=== PATIENT | female | born 1945 | race Caucasian/White ===

== ENCOUNTER → 2017-02-09 | Outpatient (CLI) | payer MEDICARE, BC ==
[~2017-02-09] MED LIST: ASPIRIN EC81 MG PO; FLONASE 50 MCG/16 GM NOSE; LIPITOR80 MG PO; NAPROSYN500 MG PO; NORCO 5-325 TA1 EACH PO
== END | disposition disaster alternative care site (69) ==
LOC: GBCOE 02-04 07:30
DX: Z12.31 Encounter for screening mammogram for malignant neoplasm of breast (principal)
CPT/HCPCS: G0202

== ENCOUNTER → 2017-02-23 | Outpatient (CLI) | payer MEDICARE, BC | END | disposition disaster alternative care site (69) | LOC: GRAD 02-19 09:00 | DX: I65.29 Occlusion and stenosis of unspecified carotid artery (principal); I65.22 Occlusion and stenosis of left carotid artery | CPT/HCPCS: Q9967 ==

== ENCOUNTER 2017-03-16 10:00 | Inpatient (IN) | payer MEDICARE, BC ==
[~2017-03-16] VITALS: Ht 160 cm; Wt 79.1 kg
--- NOTE | ~2017-03-16 | OR ---
PATIENT'S NAME: NATALYA BARBOZA [facility] AGE: 71 Y [address] ROOM: [address] [address] LOCATION: GPCU ADMIT DATE: 03/25/2017 OR/Procedure Report DISCHARGE DATE: FAMILY PHYSICIAN: Naomi Du MD ATTENDING PHYSICIAN: JOSE ANTONIO MAYS SURGEON: Jose Antonio Mays MD AGRONOMY ADVISOR: DATE OF PROCEDURE: 03/25/2017 PREOPERATIVE DIAGNOSIS: High-grade left internal carotid artery stenosis. POSTOPERATIVE DIAGNOSIS: High-grade left internal carotid artery stenosis. PROCEDURE: Left carotid endarterectomy with bovine pericardial patch. CASHIER CHECKER: FELICITA Camarena. ANESTHESIA: General. ESTIMATED BLOOD LOSS: 150 mL. FINDINGS: Heavily calcified near occlusive lesion. Neurologically intact at the end of the case. DESCRIPTION OF PROCEDURE: The patient was brought to the operating room, placed supine on the operating room table, prepped and draped in a sterile manner. Preoperative time-out was performed. The patient received preoperative antibiotics. We made a standard incision along the anterior border of the left sternocleidomastoid muscle. We transected the platysma, dissected around the soft areolar tissue along the anterior border of the muscle, identified the internal jugular and identified the facial vein, which was ligated and transected. We then dissected out the common, the external and internal as well as the superior thyroid. We gave 5000 units of heparin. We clamped on all of the 3 major vessels. Placed a clip on the superior thyroid, which was removed at the end of the case. We performed a back pressure, which showed adequate pressure, not requiring a shunt. We then made an arteriotomy using 11 blade followed with Hussein scissors. We removed the plaque in its entirety. We then did a standard bovine pericardial patch using 2 running 6-0 Kershaw sutures. We removed the clamps. There was excellent flow in all 3 vessels, which was confirmed using Doppler. The patient received a total of 5000 units of heparin, which was reversed with protamine. Thrombin was used locally in the wound. Deep layers were closed with 2-0 and 3-0 Vicryl. Skin was closed with running 4-0 Monocryl. Of note, when we were entering the carotid sheath, we were greeted by several large lymph nodes, we resected 3 and sent them for permanent pathology. They did not appear PATIENT'S NAME: NATALYA BARBOZA [facility] AGE: 71 Y [address] ROOM: [place] [address] [facility] ADMIT DATE: 03/25/2017 OR/Procedure Report DISCHARGE DATE: FAMILY PHYSICIAN: Naomi Du MD ATTENDING PHYSICIAN: JOSE ANTONIO MAYS malignant, but they were extremely large in size. The patient tolerated the procedure well, awoken in the operating room neurologically intact, transferred to the recovery room. JOSE ANTONIO MAYS MD FKM/modl /[id number] d: 03/25/171946 t: 03/27/17 1120, OPERATIVE SUMMARY
[2017-03-16] MEDS ORDERED: ASPIRIN EC81 MG PO (10:26)
[2017-03-16] MEDS ORDERED: NAPROSYN500 MG PO (10:27)
[2017-03-25] MEDS ORDERED: FLONASE 50 MCG/16 GM NOSE (11:25)
[2017-03-25 11:33] LABS: BASOPHIL # 0.1 K/uL (0.0-0.2); BASOPHIL % 0.6 %; EOSINOPHIL # 0.2 K/uL (0.0-0.5); EOSINOPHIL % 2.6 %; HEMATOCRIT 37.8 % (33.0-46.0); HEMOGLOBIN 12.5 g/dL (10.0-15.0); IMMATURE GRANULOCYTE % 0.3 %; LYMPHOCYTE # 2.6 K/uL (0.8-4.0); LYMPHOCYTE % 33.1 %; MCH 29.1 pg (27.0-34.0); MCHC 33.1 gm/dL (32.0-36.5); MCV 87.9 fl (83.0-98.0); MONOCYTE # 0.6 K/uL (0.0-1.0); MONOCYTE % 7.6 %; MPV 10.5 fl (9.4-12.4); NEUTROPHIL # (ANC) 4.3 K/uL (1.8-7.8); NEUTROPHIL % 55.8 %; NRBC % 0 /100WBC (0-0.00); PLATELET COUNT 391 K/uL (150-450); RDW-CV 14.5 % (11.9-14.6); WBC 7.8 K/uL (4.0-11.0)
[2017-03-25 11:59] LABS: ALBUMIN 4.1 gm/dL (3.5-5.0); ANION GAP 10.6 (10.0-19.0); CREATININE 0.8 mg/dL (0.5-1.1); POTASSIUM 3.6 mMol/L (3.7-5.1); TOTAL BILIRUBIN 0.4 mg/dL (0.0-1.5); TOTAL PROTEIN 7.6 g/dL (6.0-8.4)
--- NOTE | 2017-03-25 20:16 | NUR ---
PATIENT FROM PACU POST-CAROTID SURGERY. PATIENT HAS NUBMNESS TO LEFT JAW AREA, OTHERWISE NEURO ASSESSMENT INTACT. NO SWELLING OR DRAINAGE TO INCISION. VSS, TITIRATED TO RA AT END OF SHIFT. TOLERATING LIQUIDS WELL. PAIN IMPROVING.
[2017-03-26 03:39] LABS: ANION GAP 12.3 (10.0-19.0); CALCIUM 8.1 mg/dL (8.5-10.5); CREATININE 0.7 mg/dL (0.5-1.1); POTASSIUM 4.3 mMol/L (3.7-5.1)
[2017-03-26 03:46] LABS: BASOPHIL % 0.2 %; HEMATOCRIT 32.1 % (33.0-46.0); HEMOGLOBIN 10.4 g/dL (10.0-15.0); IMMATURE GRANULOCYTE % 0.5 %; MCH 29.1 pg (27.0-34.0); MCHC 32.4 gm/dL (32.0-36.5); MCV 89.7 fl (83.0-98.0); MONOCYTE # 0.5 K/uL (0.0-1.0); MONOCYTE % 5.4 %; MPV 11.3 fl (9.4-12.4); NEUTROPHIL % 81.9 %; NRBC % 0 /100WBC (0-0.00); PLATELET COUNT 319 K/uL (150-450); RBC 3.58 M/uL (3.50-5.50); RDW-CV 14.6 % (11.9-14.6); WBC 8.5 K/uL (4.0-11.0)
--- NOTE | 2017-03-26 04:59 | NUR ---
A&Ox3. VSS on RA. Numbness to L face with slight drooping that improved throughout shift. Other neuro checks intact. Up SBA to BR. C/o slight pain to procedure site at beginning of shift. Art line to L wrist, d/c'd at 0300. L wrist and R AC IV's SL. Cardiac diet. Home today.
[2017-03-26] MEDS ORDERED: NORCO 5-325 TA1 EACH PO (10:53)
[2017-03-26] MEDS ORDERED: LIPITOR80 MG PO (10:54)
--- NOTE | 2017-03-26 13:20 | NUR ---
Introduced self and CM role to Ester White. She tells me that she lives in [place], alone and plans to return there upon dismissal. Orders have been filled out already by MD, they are just waiting for her last IVs to run and then she is planning on going home. PCP is Dr.Anette Du. Ester manages her own medications at baseline and will continue to do so. Denies any needs for DME or HHC upon dismissal. Reviewed IMM with her. No other questions, needs or concerns. Plan home. Friend her to transport her. CM to continue to follow and assist.
== END 2017-03-26 13:10 | disposition disaster alternative care site (69) | DRG 37 ==
LOC: GPCU 03-25 10:52
PROVIDERS: ADMIT Surgery Vascular Surgery
PROC: 03U Upper Arteries, Supplement (ICD-10-PCS; principal; 2017-03-25)
PROC: 03CJ0ZZ Extirpation of Matter from Left Common Carotid Artery, Open Approach (ICD-10-PCS; principal; 2017-03-25)
PROC: 03CN0ZZ Extirpation of Matter from Left External Carotid Artery, Open Approach (ICD-10-PCS; principal; 2017-03-25)
DX: I65.22 Occlusion and stenosis of left carotid artery (principal); J96.01 Acute respiratory failure with hypoxia; F10.29 Alcohol dependence with unspecified alcohol-induced disorder; I10 Essential (primary) hypertension; Z87.891 Personal history of nicotine dependence
CPT/HCPCS: J0690; J1100; J1644; J1650; J2001; J2405; J2550; J2720; J3480; J7030